=== PATIENT | male | born 1990 | race Caucasian/White ===

== ENCOUNTER 2017-05-26 19:24 | Emergency (ER) | payer MEDICAID, OTHER ==
[2017-05-26] MEDS: ONDANSETRON (ODT) 4 MG TAB ODT (22:20)
[2017-05-26] MEDS: LIDOCAINE 1% (MDV) 20 ML INJ SC (22:20)
[2017-05-26] MEDS: HYDROCODONE/APAP (5/325) TAB PO (22:20)
[2017-05-26] MEDS: DIPHTH/TET/ACEL PERTUSS (ADULT) 0.5 ML VIAL IM* (22:21)
== END 2017-05-26 23:49 | disposition home or self-care (01) ==
LOC: FTE 19:24
DX: S61.012A Laceration without foreign body of left thumb without damage to nail, initial encounter (principal); W25.XXXA Contact with sharp glass, initial encounter; Y92.9 Unspecified place or not applicable; Z23 Encounter for immunization
CPT/HCPCS: 12002; 73130-LT; 90471; 90715; 99283-25